=== PATIENT | male | born 1980 | race Caucasian/White ===

== ENCOUNTER 2017-03-10 20:20 | Emergency (ER) | payer SELFPAY ==
[2017-03-10 20:24] VITALS: BP 140/79; PULSE 78; RESP 16; TEMP 99.2; O2SAT 98
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
[2017-03-10] MEDS ORDERED: BUPIVACAINE HCL PF 0.5% 10 ML VIAL INFIL ONE (22:45)
[2017-03-10] MEDS ORDERED: LIDOCAINE HCL 2% 20 ML VIAL INFIL ONE (22:45)
[2017-03-10] MEDS ORDERED: TETANUS/DIPHTHERIA TOXOID ADULT 0.5 ML VIAL IM ONE (22:45)
[2017-03-10] MEDS ORDERED: LIDOCAINE HCL 2% 50 ML VIAL ONE ×2 (22:53→22:58)
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
[2017-03-11] MEDS ORDERED: SULFAMETHOXAZOLE-TRIMETHOPRIM DS 800-160 MG TAB PO ONE
[2017-03-11] MEDS ORDERED: CEPHALEXIN MONOHYDRATE 500 MG CAP PO ONE
[2017-03-11] MEDS ORDERED: HYDR-3533 PO (00:04)
[2017-03-11] MEDS ORDERED: BACT800T5 PO (00:04)
[2017-03-11] MEDS ORDERED: CEPH-460 PO (00:04)
[2017-03-11] MEDS ORDERED: IBUP800T23 PO (00:04)
[2017-03-11 00:22] VITALS: BP 140/80
[2017-03-11] MEDS ORDERED: IBUPROFEN 800 MG TAB PO ONE (00:30)
== END 2017-03-11 00:34 | disposition home or self-care (01) ==
LOC: NEPD 20:20
DX: S67.02XA Crushing injury of left thumb, initial encounter (principal); W27.8XXA Contact with other nonpowered hand tool, initial encounter; Y93.H3 Activity, building and construction; Z23 Encounter for immunization
CPT/HCPCS: 12001; 73140; 90471; 90714